=== PATIENT | female | born 1975 | race Caucasian/White ===

== ENCOUNTER 2017-04-04 12:50 | Inpatient (IN) | payer BC ==
[~2017-04-04] VITALS: Ht 157.5 cm; Wt 54.9 kg
[~2017-04-04 12:50] MED LIST: ONDA8TAB12 PO; OXYC-302 PO; POLY17PO5 PO; WARF7.5T6 PO
[2017-04-04] MEDS ORDERED: LACTATED RINGERS 1,000 ML IV SCH (13:23)
[2017-04-04 13:27] VITALS: BP 120/78
[2017-04-04] MEDS ORDERED: LIDOCAINE 1%, 2ML ONE (13:35)
[2017-04-04] MEDS ORDERED: MIDAZOLAM 1 MG/ML, 2ML ONE (14:15)
[2017-04-04] MEDS ORDERED: FENTANYL PF 100 MCG/2ML ONE ×4 (14:15→17:38)
[2017-04-04] MEDS ORDERED: PROPOFOL 10 MG/ML, 20ML ONE (14:16)
[2017-04-04] MEDS ORDERED: CEFAZOLIN 1,000 MG ONE ×2 (14:17)
[2017-04-04] MEDS ORDERED: ROCURONIUM 10 MG/ML ONE ×2 (14:17→15:35)
[2017-04-04] MEDS ORDERED: BUPIVACAINE/PF 0.5% ONE (14:43)
[2017-04-04] MEDS ORDERED: ONDANSETRON 2MG/ML, 2ML ONE ×3 (15:08→17:15)
[2017-04-04] MEDS ORDERED: DEXAMETHASONE 4 MG/ML, 1ML ONE ×2 (15:08)
[2017-04-04] MEDS ORDERED: BUPIVACAINE/PF-EPI 0.5% 1:200K IM ONE (15:11)
[2017-04-04] MEDS ORDERED: ACETAMINOPHEN 325 MG TABLET PO PRN (15:30)
[2017-04-04] MEDS ORDERED: LABETALOL 5MG/ML, 20ML IV PRN (15:30)
[2017-04-04] MEDS ORDERED: ONDANSETRON 2MG/ML, 2ML IVPush PRN (15:30)
[2017-04-04] MEDS ORDERED: MEPERIDINE/PF 25MG/0.5ML IVPush PRN (15:30)
[2017-04-04] MEDS ORDERED: PROMETHAZINE 25 MG/ML, 1ML IV PRN (15:30)
[2017-04-04] MEDS ORDERED: OXYcodone 5 MG/5 ML ORAL.SOL UDC PO PRN (15:30)
[2017-04-04] MEDS ORDERED: hydrALAzine 20 MG/ML, 1ML IV PRN (15:30)
[2017-04-04] MEDS ORDERED: NEOSTIGMINE 1 MG/ML, 10ML ONE (15:55)
[2017-04-04] MEDS ORDERED: GLYCOPYRROLATE 0.4 MG/2 ML, 2ML ONE (15:55)
[2017-04-04] MEDS ORDERED: OXYcodone 5 MG/5 ML ORAL.SOL UDC ONE (17:01)
[2017-04-04] MEDS ORDERED: ACETAMINOPHEN 650 MG/20.3 ML UDC ONE (17:01)
[2017-04-04] MEDS: FENTANYL PF 100 MCG/2ML IV PRN ×3 (17:03→17:46)
[2017-04-04] MEDS ORDERED: HYDROmorphone 1 MG/ML, 1ML ONE ×2 (17:06→17:38)
[2017-04-04] MEDS ORDERED: MEPERIDINE/PF 25MG/0.5ML ONE (17:06)
[2017-04-04] MEDS: HYDROmorphone 1 MG/ML, 1ML IV PRN ×6 (17:11→21:57)
[2017-04-04] MEDS ORDERED: LORazepam 2 MG/ML, 1ML IV PRN (19:30)
[2017-04-04] MEDS ORDERED: LORazepam 1MG TABLET PO PRN (19:30)
[2017-04-04 20:00] VITALS: BP 117/80
[2017-04-04] MEDS: POTASSIUM CHLORIDE 20 MEQ in D5%-0.45% NACL 1,000 ML IV SCH (20:40)
[2017-04-04] MEDS: ENOXAPARIN 30 MG/0.3 ML SQ SCH (20:40)
[2017-04-04] MEDS: ONDANSETRON 2MG/ML, 2ML IVPush PRN (21:25)
[2017-04-05] MEDS: ONDANSETRON 2MG/ML, 2ML IVPush PRN ×5 (01:22→20:27)
[2017-04-05] MEDS: HYDROmorphone 1 MG/ML, 1ML IV PRN ×3 (01:22→09:19)
[2017-04-05 04:24] VITALS: BP 107/58
[2017-04-05] MEDS: POTASSIUM CHLORIDE 20 MEQ in D5%-0.45% NACL 1,000 ML IV SCH ×2 (04:52→15:42)
[2017-04-05 08:00] VITALS: BP 101/66
[2017-04-05] MEDS: ENOXAPARIN 30 MG/0.3 ML SQ SCH ×2 (08:18→20:27)
[2017-04-05] MEDS ORDERED: DEXAMETHASONE 4 MG/ML, 1ML IVPush PRN (08:30)
[2017-04-05] MEDS: OXYcodone/APAP 5/325MG TABLET PO PRN ×3 (12:10→20:27)
[2017-04-05 13:09] VITALS: BP 105/60
[2017-04-05 13:50] VITALS: BP 104/65
[2017-04-05 19:40] VITALS: BP 102/69
[2017-04-06] MEDS: ONDANSETRON 2MG/ML, 2ML IVPush PRN ×6 (00:27→23:48)
[2017-04-06] MEDS: OXYcodone/APAP 5/325MG TABLET PO PRN ×6 (00:27→23:48)
[2017-04-06] MEDS: POTASSIUM CHLORIDE 20 MEQ in D5%-0.45% NACL 1,000 ML IV SCH ×3 (01:12→19:46)
[2017-04-06 02:07] VITALS: BP 103/69
[2017-04-06] MEDS: ENOXAPARIN 30 MG/0.3 ML SQ SCH ×2 (08:13→19:41)
[2017-04-06 08:30] VITALS: BP 102/66
[2017-04-06 14:30] VITALS: BP 99/66
[2017-04-06] MEDS ORDERED: DIPHENHYDRAMINE 12.5MG/5ML ORAL SOL PO PRN (18:30)
[2017-04-06] MEDS ORDERED: DIPHENHYDRAMINE 25 MG CAPSULE PO PRN (18:30)
[2017-04-06] MEDS ORDERED: DIPHENHYDRAMINE 50 MG/ML, 1ML IVPush PRN ×2 (18:30)
[2017-04-06 19:36] VITALS: BP 98/67
[2017-04-07 01:13] VITALS: BP 98/61
[2017-04-07 06:55] VITALS: BP 104/67
[2017-04-07] MEDS: ONDANSETRON 2MG/ML, 2ML IVPush PRN ×2 (07:39→12:20)
[2017-04-07] MEDS: OXYcodone/APAP 5/325MG TABLET PO PRN ×2 (07:39→12:20)
[2017-04-07] MEDS: ENOXAPARIN 30 MG/0.3 ML SQ SCH (07:39)
[2017-04-07] MEDS: POTASSIUM CHLORIDE 20 MEQ in D5%-0.45% NACL 1,000 ML IV SCH (08:06)
[2017-04-07] MEDS ORDERED: OXYC-302 PO (12:32)
== END 2017-04-07 13:16 | disposition home or self-care (01) | DRG 355 ==
LOC: ORIP 12:50 → EDSTATUS 15:30 → 4NOR 18:45
PROVIDERS: ADMIT Surgery; ATTEND Surgery
PROC: 0WJF4ZZ Inspection of Abdominal Wall, Percutaneous Endoscopic Approach (ICD-10-PCS; 2017-04-04)
PROC: 0WQF0ZZ Repair Abdominal Wall, Open Approach (ICD-10-PCS; principal; 2017-04-04 15:30)
DX: K46.0 Unspecified abdominal hernia with obstruction, without gangrene (principal); Z53.31 Laparoscopic surgical procedure converted to open procedure
CPT/HCPCS: 36415; 82565; 85610; 93005; J0690; J1100; J1170; J1650; J2175; J2250; J2405; J2704; J2710; J3010; J3480; J3490; C1765; J2060; J7120